=== PATIENT | female | born 1990 | race Caucasian/White ===

== ENCOUNTER 2019-10-18 11:42 | Emergency (ER) | payer MEDICAID, SELFPAY ==
[2019-10-18 11:42] VITALS: BP 163/87; PULSE 97; RESP 16; TEMP 37; O2SAT 98; BMI 43.2
--- NOTE | 2019-10-18 13:24 | HMH.EDFEV ---
ED Disposition Clinical Impression: Viral infection Disposition: Home, Self-Care Condition on Discharge: Good Instructions: Fever of Unknown Origin Additional Instructions: Please self quarantine. We will have your antibody test back shortly and your COVID test was back tomorrow. 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 Start these medications DANA. Prescriptions: Azithromycin 250 mg PO DAILY 5 Days #6 tablet dexAMETHasone [Dexamethasone] 2 mg PO DAILY 7 Days #7 tablet Ipratropium/Albuterol Sulfate [Duoneb 3mL neb] 3 ml IH QID 30 Days #75 neb Losartan Potassium 50 mg PO DAILY 30 Days #30 tablet Referrals: Zion Perrin [Primary Care Provider] - - Critical Care Critical Care Time: No Attestation: On 10/18/19, the high probability of a clinically significant, sudden or life threatening deterioration of the following system(s) required my full and direct attention, intervention and personal management. The time I documented below is in addition to time spent performing reported procedures but includes the following listed in this critical care notation. Medical Decision Making - Medical Records Medical records reviewed: Yes: I reviewed the patient's medical records. - Gomez Inquiry Pt receiving controlled substance: No Vital Signs: 10/18/19 11:42 Temperature 98.6 F Temperature Source Oral Pulse Rate [Left Radial] 97 H Respiratory Rate 16 Blood Pressure [Right Arm] 163/87 H Blood Pressure Mean [Right Arm] 112 Blood Pressure Position [Right Arm] Standing 02 Sat by Pulse Oximetry 98 Oxygen Delivery Method Room Air - Lab Data Lab results reviewed: Yes: I reviewed the patient's lab results. Orders (Tests/Meds): ORDERS Category Date Time Status SARS-CoV-2, LIUDMILA Stat Lab 10/18/19 13:15 Received Fever HPI - General Chief Complaint: Fever Stated Complaint: SOA Sore Throat,cough,diarrhea,loss of taste and s Time Seen by Provider: 10/18/19 12:30 Mode of Arrival: Ambulatory Limitations: No Limitations Description of Symptoms (Recalled from ER Triage Doc. by RN): to ed per pvt car with c/o sob, headache, loss of smell pt states she has been tested x 2 for covid 19 and tested neg x 2 states her md wants another test - History of Present Illness HPI Narrative: 29-year-old female presents the ED with shortness of breath and cough. She states of some this is been going on for several days she also states she is been just recovered twice and the test are negative. She lost taste and smell yesterday and she cannot taste or smell anything. She also complains of sore throat and headache. Patient denies any recent fever shakes or chills. She also states that she has no nausea or vomiting. - Related Data Previous Rx's Medication Instructions Recorded Amoxicillin [Amoxicillin 500mg 500 mg PO TID #30 cap 12/20/17 Cap] Azithromycin 250 mg PO DAILY 5 Days #6 tablet 10/18/19 Ipratropium/Albuterol Sulfate 3 ml IH QID 30 Days #75 neb 10/18/19 [Duoneb 3mL neb] Losartan Potassium 50 mg PO DAILY 30 Days #30 tablet 10/18/19 dexAMETHasone [Dexamethasone] 2 mg PO DAILY 7 Days #7 tablet 10/18/19 Allergies Allergy/AdvReac Type Severity Reaction Status Date / Time No Known Allergies Allergy Verified 12/20/17 22:53 [facility] History - Hepatitis A Screen Drug use history?: No High risk sexual behaviors?: No History of sexually transmitted infection?: No Currently employed?: No Childcare worker?: No Do you have indoor plumbing?: Yes Do you have electricity?: Yes Attestation statement:: This patient has been screened for Hepatitis A risk factors. I have reviewed the patient's past medical history: Yes - Social History Smoking Status: Current every day smoker Tobacco Type: cigarettes # Packs/Day (cigarettes): 1 Alcohol Intake: never Occupational Status: other Housing: other Household Members: other ROS Obtained: Yes All systems reviewed & no additional complaints - Con
[2019-10-18 14:53] LABS: Coronavirus 19 IgG Antibody Negative (Negative); Coronavirus 19 IgM Antibody Negative (Negative)
[2019-10-18 15:11] VITALS: BP 124/74; PULSE 78; RESP 16; TEMP 36.6; O2SAT 98
[2019-10-20 04:42] LABS: Covid-19 Nasal PCR Sendout Lex NOT DETECTED
== END 2019-10-18 15:13 | disposition home or self-care (01) ==
PROVIDERS: Emergency Provider Family Medicine; PCP Pediatrics
DX: B34.9 Viral infection, unspecified (principal); F17.210 Nicotine dependence, cigarettes, uncomplicated
CPT/HCPCS: 86328; 96372; 99282; U0004

== ENCOUNTER 2021-07-22 14:34 | Emergency (ER) | payer MEDICAID, SELFPAY ==
[2021-07-22 14:40] VITALS: BP 183/110; PULSE 86; RESP 21; TEMP 36.9; O2SAT 99; BMI 44.2
--- NOTE | 2021-07-22 14:41 | XR_ITS ---
PROCEDURE INFORMATION: Exam: XR Left Wrist Exam date and time: 07/22/2021 2:43 PM Age: 31 years old Clinical indication: Injury or trauma; Other: Pulling up carpet Friday, fel pop in left wrist. ; Blunt trauma (contusions or hematomas); Patient HX: Patient was pulling up carpet Friday and felt pop in left wrist. Shielded. ; Additional info: Was taking up carpet and felt a pop TECHNIQUE: Imaging protocol: XR Left wrist. Views: 3 or more views. COMPARISON: No relevant prior studies available. FINDINGS: Bones/joints: Normal. Soft tissues: Normal. IMPRESSION: No acute findings.
--- NOTE | 2021-07-22 15:10 | HMH.EDUTC ---
[facility] [place] Clinical Impression: Strain of wrist, left Qualifiers: Encounter type: initial encounter Qualified Code(s): S66.912A - Strain of unspecified muscle, fascia and tendon at wrist and hand level, left hand, initial encounter Disposition: Home, Self-Care Condition on Discharge: Good Instructions: DI for Wrist Strain Additional Instructions: sprain- rest Ice with cold pack for 20 minutes remove may repeat for comfort every hour splint for support and swelling no less in the shower. Be sure not too tight but not to lose either Elevate with arm above your heart as much as possible to help reduce swelling and therefore pain Ibuprofen every 6 hours as needed for pain or inflammation. If needs something more you can take Tylenol every 4 hours as needed as long as her primary care has told he was okayed for you to take both. Follow-up immediately if new or worsening symptoms or no noticeable improvement over the next 3-5 days. call ortho Prescriptions: predniSONE [Prednisone 20mg Tab] 20 mg PO BID #10 tab Transmission Status: Pending to [id number] Referrals: Saida Hernandez APRN [Primary Care Provider] - Jaylan Sheets MD [Staff Physician] - Time of Disposition: 15:23 Medical Decision Making - Gomez Inquiry Pt receiving controlled substance: No Vital Signs: 07/22/21 14:40 Temperature 98.5 F Temperature Source Oral Pulse Rate [Right Brachial] 86 Respiratory Rate 21 Blood Pressure [Right Arm] 183/110 H Blood Pressure Mean [Right Arm] 134 Blood Pressure Source [Right Arm] Automatic Cuff Blood Pressure Position [Right Arm] Sitting 02 Sat by Pulse Oximetry 99 Oxygen Delivery Method Room Air [facility] [place] [facility] [place] - General Chief complaint: [facility] Stated complaint: ao 07/20 left arm pain Time Seen by Provider: 07/22/21 15:10 Mode of Arrival: Ambulatory Source of Information: Patient Limitations: No Limitations Description of Symptoms (Recalled from Triage Doc. by RN): PATIENT REPORTS SHE WAS CARRYING A ROLL OF CARPET ON FRIDAY WHEN SHE HEARD/FELT A POP IN HER LEFT WRIST. SHE STATES THE PAIN HAS GOTTEN WORSE AND C/O NUMBNESS TO FINGERTIPS. DECREASED ROM REPORTED HEENT Symptoms (Recalled from RN notes): No Resp Symptoms (Recalled from RN notes): No Skin Symptoms (Recalled from RN notes): No MS Symptoms (Recalled from RN notes): Yes Functional Status (Recalled from RN notes): WNL - History of Present Illness Provider Complaint: 31 yr old female presents for hand wrist/pain. pt states she was carrying carpet on friday when she felt a pop in left wrist. pt states pain has worsen. pt states now she has numbness to fingertips - Related Data Previous Rx's Medication Instructions Recorded predniSONE [Prednisone 20mg 20 mg PO BID #10 tab 07/22/21 Tab] Allergies Allergy/AdvReac Type Severity Reaction Status Date / Time No Known Allergies Allergy Verified 12/20/17 22:53 - Worker's Comp Is this a Worker's Comp case?: No [facility] History - Hepatitis A Screen Drug use history?: No High risk sexual behaviors?: No History of sexually transmitted infection?: No Currently employed?: No Childcare worker?: No Do you have indoor plumbing?: Yes Do you have electricity?: Yes Attestation statement:: This patient has been screened for Hepatitis A risk factors. I have reviewed the patient's past medical history: Yes - Social History Smoking Status: Current every day smoker Tobacco Type: cigarettes # Packs/Day (cigarettes): 1 Alcohol Intake: never Occupational Status: other Housing: other Household Members: other ROS Obtained: Yes Systems reviewed as appropriate & no additional complaints - Constitutional Constitutional: Reports system reviewed and no additional complaints, except as docu, Denies fatigue, Denies fever(s) - Eyes Eyes: Reports system reviewed and no additional complaints, except as docu, Denies dry eyes - ENT Ears, Nose, Mouth, and Throat
[2021-07-22 15:27] VITALS: BP 183/110; PULSE 86; RESP 21; TEMP 36.9; O2SAT 99
== END 2021-07-22 15:35 | disposition home or self-care (01) ==
PROVIDERS: Emergency Provider Nurse Practitioner Family; PCP Nurse Practitioner
DX: S66.912A Strain of unspecified muscle, fascia and tendon at wrist and hand level, left hand, initial encounter (principal); R20.2 Paresthesia of skin; F17.210 Nicotine dependence, cigarettes, uncomplicated
CPT/HCPCS: 73110; 99213; G0463

== ENCOUNTER 2022-02-14 13:29 | Emergency (ER) | payer MEDICAID, SELFPAY ==
[2022-02-14 13:44] VITALS: BP 147/91; PULSE 88; RESP 14; TEMP 36.7; O2SAT 95; BMI 46.0
[2022-02-14 14:39] VITALS: BP 147/93; PULSE 68; RESP 18; TEMP 36.6; O2SAT 98; BMI 45.8
--- NOTE | 2022-02-14 14:48 | EXP.UTC ---
Discharge Plan Disposition Patient Disposition: Home, Self-Care Condition: Good Prescriptions Prescriptions: New clindamycin HCl 300 mg capsule 300 mg PO Q8H Qty: 30 0RF ibuprofen [IBU] 800 mg tablet 800 mg PO Q8HP PRN (Reason: Moderate Pain) Qty: 30 0RF No Action amoxicillin 500 mg capsule 500 mg PO BID Label Comments: TAKE 1 CAPSULE BY MOUTH THREE TIMES DAILY FOR 10 DAYS ibuprofen 800 mg tablet 800 mg PO TID Label Comments: TAKE 1 TABLET BY MOUTH THREE TIMES DAILY WITH FOOD dexamethasone 0.5 mg/5 mL solution 0.5 mg PO Q4HP PRN (Reason: tooth pain) Label Comments: USE 10 ML BY MOUTH 4 TIMES DAILY, RINSE AND HOLD FOR 2 MINUTES THEN SPIT lidocaine HCl [Lidocaine Viscous] 2 % solution 2 ml PO Q2HP PRN (Reason: dental pain) Label Comments: APPLY 2 ML TO AFFECTED AREA EVERY 2 HOURS NEEDED FOR PAIN chlorhexidine gluconate 0.12 % mouthwash 15 ml PO BID Label Comments: RINSE WITH 15ML FOR 2 MINUTES AND SPIT, USE TWICE DAILY AFTER BRUSHING TEETH Referrals Follow up/Referrals: Provider,Referral, MD [Primary Care Provider] - See instructions Activity Restrictions/Add. Instructions Additional Instructions/Restrictions: Take the ibuprofen for pain. Stop the amoxicillin that you are on. Start the clindamycin that we prescribed. Take the medications as directed. Follow up with your dentist. Follow up with your primary care provider. GO TO THE ER FOR ANY WORSENING SYMPTOMS Clinical Impressions Clinical Impression: Abscess, dental Instructions Patient Instructions: Tooth Abscess, DI for Tooth Abscess Discharge ED Provider: Ty Donovan [facility] General Stated complaint: Tooth extraction 02/08 possible infection RT side Mode of Arrival: Ambulatory Source of Information: Patient Limitations: No Limitations Time Seen by Provider: 02/14/22 14:48 Description of Symptoms (Recalled from Triage Doc. by RN): pt had teeth pulled Friday. C/o pain and facial pressure today. is currently being treated for dry socket and infection. HEENT Symptoms (Recalled from RN notes): No Resp Symptoms (Recalled from RN notes): No Skin Symptoms (Recalled from RN notes): No MS Symptoms (Recalled from RN notes): No Functional Status (Recalled from RN notes): na History of Present Illness Provider Complaint: She states that she had to have 2 teeth pulled by her dentist about 10 days ago. She then got dry sockets and had to return to her dentist. She was then started on amoxicillin. She has taken this for the past 7 days and she states that is is not fighting the infection in her gums good enough. she was unable to get in with her dentist today. Related Data Home Medications Medication Instructions Recorded Confirmed amoxicillin 500 mg capsule 500 mg PO BID tooth infection 02/14/22 02/14/22 chlorhexidine gluconate 0.12 % 15 ml PO BID tooth infection 02/14/22 02/14/22 mouthwash dexamethasone 0.5 mg/5 mL oral 0.5 mg PO Q4HP PRN tooth pain 02/14/22 02/14/22 solution ibuprofen 800 mg tablet 800 mg PO TID Pain 02/14/22 02/14/22 lidocaine HCl 2 % mucosal solution 2 ml PO Q2HP PRN dental pain 02/14/22 02/14/22 (Lidocaine Viscous) Previous Rx's Medication Instructions Recorded clindamycin HCl 300 mg capsule 300 mg PO Q8H #30 caps 02/14/22 ibuprofen 800 mg tablet (IBU) 800 mg PO Q8HP PRN Moderate Pain 02/14/22 #30 tabs Allergies Allergy/AdvReac Type Severity Reaction Status Date / Time No Known Allergies Allergy Verified 12/20/17 22:53 Worker's Comp Is this a Worker's Comp case?: No PFSH PFSH Social History Smoking Status: Current every day smoker tobacco type: cigarettes packs per day: 1 alcohol intake: never current occupational status: other Travel in the last 8 weeks: None household members: other housing: other ROS Obtained: Yes All systems reviewed
[2022-02-14 14:58] VITALS: BP 145/90; PULSE 67; RESP 18; TEMP 36.6; O2SAT 99
== END 2022-02-14 15:17 | disposition home or self-care (01) ==
PROVIDERS: Emergency Provider Nurse Practitioner Family
DX: K04.7 Periapical abscess without sinus (principal)
CPT/HCPCS: 96372; 99212; G0463; J0696

== ENCOUNTER 2022-03-08 17:17 | Emergency (ER) | payer MEDICAID, SELFPAY ==
[2022-03-08 17:18] VITALS: BP 151/106; PULSE 110; RESP 16; TEMP 36.9; O2SAT 100; BMI 44.6
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
--- NOTE | 2022-03-08 17:50 | CT_ITS ---
PROCEDURE INFORMATION: Exam: CT Lumbar Spine Without Contrast Exam date and time: 03/08/2022 7:23 PM Age: 31 years old Clinical indication: Prior surgery; Surgery date: 6+ months; Surgery type: Splenic coil post splenic rupture. x 3; Patient HX: PT injured back twisting while sweeping her floors. C/O pain @ mid t-spine; Additional info: Injury, pain TECHNIQUE: Imaging protocol: Computed tomography of the lumbar spine without contrast. Radiation optimization: All CT scans at this facility use at least one of these dose optimization techniques: automated exposure control; mA and/or kV adjustment per patient size (includes targeted exams where dose is matched to clinical indication); or iterative reconstruction. COMPARISON: CT THORACIC SPINE WO CON 03/08/2022 7:19 PM FINDINGS: Bones/joints: No acute fracture. Normal vertebral body alignment. Facet joints are unremarkable. Intervertebral disc spaces are unremarkable. No spinal stenosis. Soft tissues: Unremarkable. IMPRESSION: No acute fracture or malalignment.
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
--- NOTE | 2022-03-08 18:05 | PC.NURSE ---
Updated and pt on POC.
[2022-03-08 18:26] LABS: Basophils # 0.1 K/mm3 (0-0.2); Basophils % 0.5 % (0.1-2.0); Eosinophils # 0.1 K/mm3 (0.0-0.4); Eosinophils % 1.3 % (0.1-12.0); Hematocrit 40.3 % (37.0-47.0); Hemoglobin 13.2 g/dL (12.2-16.2); Lymphocytes # 1.4 K/mm3 (0.7-4.5); Mean Corpuscular HGB Conc 32.7 g/dL (31.8-35.4); Mean Corpuscular Hemoglobin 28.1 pg (27.0-31.2); Mean Platelet Volume 8.7 fl (7.4-10.4); Monocytes # 0.2 K/mm3 (0.1-1.0); Monocytes % 1.4 % (1.7-9.3); Neutrophils # 8.7 K/mm3 (1.8-7.8); Neutrophils % 83.8 % (37.0-80.0); Platelet Count 401 K/mm3 (142-424); Red Blood Count 4.69 M/mm3 (4.20-5.40); Red Cell Distribution Width 13.9 % (11.5-17.5); White Blood Count 10.4 K/mm3 (4.8-10.8)
[2022-03-08 18:31] LABS: Chloride 104 mmol/L (98-107); Potassium 4.2 mmoL/L (3.5-5.1); Sodium 139 mmol/L (136-145)
[2022-03-08 18:33] LABS: Blood Urea Nitrogen 13 mg/dl (7-17); Creatinine Clearance Estimated 100 mL/min (50-200); Estimated Glomerular Filt Rate 97 ml/min (>60); GFR (African American) 117 ML/MIN (>60)
[2022-03-08 18:34] LABS: Alanine Aminotransferase 37 U/L (12-78); Albumin Level 4.7 g/dl (3.5-5.0); Albumin/Globulin Ratio 1.5 (1.1-1.8); Alkaline Phosphatase 76 U/L (38-126); Anion Gap 16.2 mEq/L (5-15); Aspartate Amino Transferase 32 U/L (14-36); Bilirubin,Total 0.2 mg/dl (0.2-1.3); Calcium 10.3 mg/dl (8.4-10.2); Carbon Dioxide 23 mmol/L (22.0-30.0); Globulin 3.2 g/dL (1.3-3.2); Glucose 119 mg/dl (74-100); Lipase 97 U/L (23-300); Total Protein,Serum 7.9 g/dl (6.3-8.2)
[2022-03-08 18:43] LABS: HCG Qualitative, Serum Negative (Negative)
--- NOTE | 2022-03-08 19:14 | PC.NURSE ---
Pt to CT
--- NOTE | 2022-03-08 20:37 | PC.NURSE ---
pt states she was tired of waiting and wanted to leave AMA
[2022-03-08 20:51] VITALS: BP 154/97; PULSE 90; RESP 16; TEMP 36.9; O2SAT 100
== END 2022-03-08 20:52 | disposition left against medical advice (07) ==
PROVIDERS: Emergency Provider Emergency Medicine; PCP Family Medicine
DX: M54.9 Dorsalgia, unspecified (principal); Z53.29 Procedure and treatment not carried out because of patient's decision for other reasons
CPT/HCPCS: 72128; 72131; 80053; 83690; 84703; 85025; 96374; 96375; 99284; J2405

== ENCOUNTER 2023-04-20 11:40 | Emergency (ER) | payer MEDICAID, SELFPAY ==
[2023-04-20 12:00] VITALS: BP 163/91; PULSE 98; RESP 18; TEMP 37.1; O2SAT 96; BMI 50.3
--- NOTE | 2023-04-20 12:16 | EXP.UTC ---
Discharge Plan Disposition Patient Disposition: Home, Self-Care Condition: Good Prescriptions Prescriptions: New prednisone 10 mg tablet 10 mg PO BID 3 Days Qty: 6 0RF amoxicillin [amoxicillin] 875 mg tablet 875 mg PO Q12H Qty: 20 0RF [id number] [Bromfed DM] 2-30-10 mg/5 mL Syrup 5 ml PO Q6H PRN (Reason: Cough) Qty: 240 0RF No Action lamotrigine 100 mg tablet 100 mg PO DAILY Referrals Follow up/Referrals: Jillian iLn MD [Primary Care Provider] - See instructions Activity Restrictions/Add. Instructions Additional Instructions/Restrictions: Drink plenty of fluids. Take tylenol or ibuprofen for pain or fever. Take the medications as directed. Follow up with your regular doctor. GO TO THE ER FOR ANY WORSENING SYMPTOMS Throw your tooth brush away and get a new one. Clinical Impressions Clinical Impression: Strep throat Stand Alone Forms Stand Alone Forms: Work/School Release Instructions Patient Instructions: Strep Throat, DI for Strep Throat Discharge ED Provider: Ty Donovan [facility] General Stated complaint: st ear pain body ache Time Seen by Provider: 04/20/23 12:16 History of Present Illness Provider Complaint: She states that for the past 3 days she has had worsening sore throat and malaise. Related Data Home Medications Medication Instructions Recorded Confirmed lamotrigine 100 mg tablet 100 mg PO DAILY bipolar 04/20/23 04/20/23 Previous Rx's Medication Instructions Recorded amoxicillin 875 mg tablet 875 mg PO Q12H #20 tabs 04/20/23 [id number]-[id number] 5 ml PO Q6H PRN Cough #240 mL 04/20/23 2 mg-30 mg-10 mg/5 mL oral syrup (Bromfed DM) prednisone 10 mg tablet 10 mg PO BID 3 days #6 tabs 04/20/23 Allergies Allergy/AdvReac Type Severity Reaction Status Date / Time No Known Allergies Allergy Verified 04/20/23 12:24 [facility] Disclaimer: The information contained in this section may have been updated after the patient was seen, as this information can be updated by other users. Social History Smoking Status: Current every day smoker tobacco type: cigarettes packs per day: 1 alcohol intake: never current occupational status: other Travel in the last 8 weeks: None household members: other housing: other ROS Obtained: Yes All systems reviewed & no additional complaints except as documented Constitutional Constitutional: Reports chills and Reports fever(s) Eyes Eyes: Denies eye discharge ENT Ears, Nose, Mouth, and Throat: Reports as per HPI Cardiovascular Cardiovascular: Denies chest pain Respiratory Respiratory: Denies chest congestion and Reports cough Gastrointestinal Gastrointestingal: Reports nausea; Denies abdominal pain, constipation, cramping, diarrhea or vomiting Musculoskeletal Musculoskeletal: Denies arthralgias Integumentary/Breasts Skin/Breast: Denies rash Neurologic Neurologic: Denies paresthesias Physical Exam General General appearance: alert and in no apparent distress Head Head exam: atraumatic, normocephalic and normal inspection Eye Eye exam: Present normal appearance, PERRL and EOMI ENT ENT exam: Present mucous membranes moist and normal external ear exam Expanded ENT Exam TM/Canal exam: Bilateral TM: erythema and bulging Nose exam: Absent sinus tenderness Mouth exam: Present normal external inspection; Absent drooling Teeth exam: Present normal inspection Throat exam: Present tonsillar erythema, tonsillomegaly and tonsillar exudate Neck Neck exam: Present normal inspection, full ROM and trachea midline; Absent tenderness, meningismus or lymphadenopathy Chest Chest inspection: Present normal inspection and symmetric chest wall rise; Absent tenderness Respiratory Respiratory exam: Present normal lung sounds bilaterally; Absent respiratory distress, wheezes, stridor or accessory muscle use Cardiovascular Cardiovascular exam: Present regular rate and normal rhythm; Absent systolic murmur or diastolic murmur Abdominal Exam Abdominal exam: Present soft and normal bowel sounds; Absent distention, tenderness, guarding, rebound or rigidity Extremities Exam Extremities exam: Present normal inspection and normal capillary refill; Absent calf tenderness Back Exam Back exam: Present normal inspection and full ROM; Absent tenderness, CVA tenderness (R) or CVA tenderness (L) Neurological Exam Neurological exam: Present alert, oriented X3 and CN II-XII intact Psychiatric Psychiatric exam: Present normal affect and normal mood Skin Skin exam: Present warm, dry, intact and normal color Medical Decision Making Medical Records Medical records reviewed: No I reviewed the patient's medical records. Gomez Inquiry Pt receiving controlled substance: No Lab Data Lab results reviewed: Yes I reviewed the patient's lab results.
[2023-04-20 12:29] LABS: UTC Influenza A Antigen Negative (Negative); UTC Influenza B Antigen Negative (Negative); UTC Strep Screen (Rapid) Positive (Negative)
[2023-04-20 12:47] VITALS: BP 163/91; PULSE 98; RESP 18; TEMP 37.1; O2SAT 96
== END 2023-04-20 12:47 | disposition home or self-care (01) ==
PROVIDERS: Emergency Provider Nurse Practitioner Family; PCP Family Medicine
DX: J02.0 Streptococcal pharyngitis (principal); R07.0 Pain in throat; R50.9 Fever, unspecified; H92.09 Otalgia, unspecified ear; R53.81 Other malaise; M79.18 Myalgia, other site; F17.210 Nicotine dependence, cigarettes, uncomplicated
CPT/HCPCS: 87804; 87880; 99212; 99214; G0463